=== PATIENT | male | born 1990 | race Caucasian/White ===

== ENCOUNTER 2019-08-26 17:49 | Emergency (ER) | payer OTHER ==
[2019-08-26] MEDS ORDERED: Diphtheria,Pertussis(Acell),Tetanus Vaccine 0.5 ML Syringe IM ONE (18:20)
--- NOTE | 2019-08-26 18:21 | EDM.PDOC ---
ED HPI GENERAL MEDICAL PROBLEM - General Chief Complaint: Laceration Stated Complaint: LIP BLEEDING Time Seen by Provider: 08/26/19 18:20 Source of Information: Reports: Patient - History of Present Illness INITIAL COMMENTS - FREE TEXT/NARRATIVE: HISTORY AND PHYSICAL: History of present illness: [patient struck in face with cam-lock hose, 6" collar while at work no LOC, small lac left nare, nasal swelling noted, dentition intact, pt wears braces and has mucosal lesions secondary to braces ] Review of systems: As per history of present illness and below otherwise all systems reviewed and negative. Past medical history: As per history of present illness and as reviewed below otherwise noncontributory. Surgical history: As per history of present illness and as reviewed below otherwise noncontributory. Social history: No reported history of drug or alcohol abuse. Family history: As per history of present illness and as reviewed below otherwise noncontributory. Physical exam: HEENT: normocephalic, pupils reactive, negative for conjunctival pallor or scleral icterus, mucous membranes moist, throat clear, neck supple, nontender, trachea midline.nasal swelling and lac as per hpi Lungs: Clear to auscultation, breath sounds equal bilaterally, chest nontender. Heart: S1S2, regular, negative for clicks, rubs, or JVD. Abdomen: Soft, nondistended, nontender. Negative for masses or hepatosplenomegaly. Negative for costovertebral tenderness. Pelvis: Stable nontender. Genitourinary: Deferred. Rectal: Deferred. Extremities: Atraumatic, negative for cords or calf pain. Neurovascular unremarkable. Neuro: Awake, alert, oriented. Cranial nerves II through XII unremarkable. Cerebellum unremarkable. Motor and sensory unremarkable throughout. Exam nonfocal. 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 nose Pain Score (Numeric/FACES): 5 - Related Data Allergies Allergy/AdvReac Type Severity Reaction Status Date / Time No Known Allergies Allergy Verified 08/26/19 18:15 Home Meds: Home Meds Ferrous Sulfate, Dried [Iron] 120 mg PO DAILY 08/26/19 [History] Omeprazole 20 mg PO DAILY 08/26/19 [History] Past Medical History - Infectious Disease History Infectious Disease History: Reports: Chicken Pox - Past Surgical History GI Surgical History: Reports: Cholecystectomy Social & Family History - Family History Family Medical History: Noncontributory - Tobacco Use Smoking Status *Q: Never Smoker - Recreational Drug Use Recreational Drug Use: No ED ROS GENERAL - Review of Systems Review Of Systems: See Below ED EXAM, SKIN/RASH Exam: See Below Course - Vital Signs Last Recorded V/S: Last Vital Signs Temp 98.7 F 08/26/19 18:16 Pulse 92 08/26/19 18:16 Resp 18 08/26/19 18:16 BP 149/75 H 08/26/19 18:16 Pulse Ox 95 08/26/19 18:16 - Orders/Labs/Meds Orders: Active Orders 24 hr Category Date Time Status Vaccines to be Administered [RC] PER UNIT ROUTINE Care 08/26/19 18:20 Active Meds: Medications Discontinued Medications Generic Name Dose Route Start Last Admin Trade Name Tamir PRN Reason Stop Dose Admin Diphtheria/Tetanus/Acell Pertussis 0.5 ml 08/26/19 18:20 08/26/19 18:46 Adacel IM 08/26/19 18:21 Not Given .ONCE ONE Octyl Cyanoacrylate 1 applic 08/26/19 18:44 Dermabond Advance TOP 08/26/19 18:45 ONETIME ONE Octyl Cyanoacrylate Confirm 08/26/19 18:45 Dermabond Advance Administered 08/26/19 18:46 Dose 1 applic .ROUTE .STK-MED ONE Departure - Departure Time of Disposition: 18:52 Disposition: Home, Self-Care 01 Condition: Good Clinical Impression: Face lacerations, Nasal swelling - Discharge Information Referrals: PCP,Not In Area [Primary Care Provider] - Forms: ED Department Discharge Additional Instructions: The following information is given to patients seen in the emergency department who are being discharged to home. This information is to outline your options for follow-up care. We provide all patients seen in our emergency department with a follow-up referral. The need for follow-up, as well as the timing and circumstances, are variable depending upon the specifics of your emergency department visit. If you don't have a primary care physician on staff, we will provide you with a referral. We always advise you to contact your personal physician following an emergency department visit to inform them of the circumstance of the visit and for follow-up with them and/or the need for any referrals to a consulting specialist. The emergency department will also refer you to a specialist when appropriate. This referral assures that you have the opportunity for follow-up care with a specialist. All of these measure are taken in an effort to provide you with optimal care, which includes your follow-up. Under all circumstances we always encourage you to contact your private physician who remains a resource for coordinating your care. When calling for follow-up care, please make the office aware that this follow-up is from your recent emergency room visit. If for any reason you are refused follow-up, please contact the [facility] emergency department at and asked to speak to the emergency department charge nurse. Sepsis Event Note - Evaluation Sepsis Screening Result: No Definite Risk - Focused Exam Vital Signs: Vital Signs Temp Pulse Resp BP Pulse Ox 08/26/19 18:16 98.7 F 92 18 149/75 H 95 Date Exam was Performed: 08/26/19 Time Exam was Performed: 18:51 - My Orders Last 24 Hours: My Active Orders 08/26/19 18:20 Vaccines to be Administered [RC] PER UNIT ROUTINE - Assessment/Plan Last 24 Hours: My Active Orders 08/26/19 18:20 Vaccines to be Administered [RC] PER UNIT ROUTINE
[2019-08-26] MEDS ORDERED: Octyl 2-Cyanoacrylate 1 Tube TOP ONE (18:44)
[2019-08-26] MEDS ORDERED: Octyl 2-Cyanoacrylate 1 Tube ONE (18:45)
--- NOTE | 2019-08-26 18:51 | CT ---
INDICATION: Facial injury TECHNIQUE: CT maxillofacial without contrast. COMPARISON: None FINDINGS: Facial bones: No fractures or bone lesions. Specifically the nasal bones, temporomandibular joints, maxilla and mandible appear intact. Orbits and globes: Unremarkable. Globes are intact. No sign of intraorbital hemorrhage or emphysema. Sinuses: No acute or significant findings. Soft tissues: Unremarkable. IMPRESSION: No sign of facial injury. Please note that all CT scans at this facility use dose modulation, iterative reconstruction, and/or weight-based dosing when appropriate to reduce radiation dose to as low as reasonably achievable. Dictated by Mars Morales MD @ Aug 26 2019 6:44PM Signed by Dr. Mars Morales @ Aug 26 2019 6:49PM
== END 2019-08-26 19:00 | disposition home or self-care (01) ==
LOC: MW.ED 17:49
DX: S01.21XA Laceration without foreign body of nose, initial encounter (principal); R22.0 Localized swelling, mass and lump, head; K13.70 Unspecified lesions of oral mucosa; W22.8XXA Striking against or struck by other objects, initial encounter; Y92.89 Other specified places as the place of occurrence of the external cause; Y99.0 Civilian activity done for income or pay
CPT/HCPCS: 12011; 70486; 70486-26; 99283-25

== ENCOUNTER 2022-02-24 10:31 | Emergency (ER) | payer SELFPAY ==
[2022-02-24] MEDS ORDERED: Acetaminophen/Codeine 120-12 MG/5 ML Soln 5 ML UD Cup PO ONE (10:42)
[2022-02-24 11:31] LABS: CORONAVIRUS COVID-19 NAA NEGATIVE (NEGATIVE); INFLUENZA A NAA NEGATIVE (NEGATIVE); INFLUENZA B NAA NEGATIVE (NEGATIVE)
== END 2022-02-24 12:02 | disposition home or self-care (01) ==
LOC: MW.ED 10:31
DX: J02.9 Acute pharyngitis, unspecified (principal); K21.9 Gastro-esophageal reflux disease without esophagitis; Z20.822 Contact with and (suspected) exposure to COVID-19; Z86.16 Personal history of COVID-19; Z90.49 Acquired absence of other specified parts of digestive tract
CPT/HCPCS: 0240U; 87651; 99284; A9270